=== PATIENT | female | born 1935 | race Caucasian/White ===

== ENCOUNTER 2019-10-29 11:16 | Emergency (ER) | payer MEDICARE, BC ==
[2019-10-29 11:23] VITALS: BP 191/96; PULSE 98
--- NOTE | 2019-10-29 11:54 | EDM.PDOC ---
ED HPI GENERAL MEDICAL PROBLEM - General Chief Complaint: Respiratory Problem Stated Complaint: AMBULANCE Time Seen by Provider: 10/29/19 11:40 Source of Information: Reports: Patient History Limitations: Reports: No Limitations - History of Present Illness INITIAL COMMENTS - FREE TEXT/NARRATIVE: This 84 yo female patient was brought to the ED by [facility] due to increased shortness of breath. The patient reports she was in the hospital in [place] up to about 1 week ago for increased fluid levels. The patient reports she has been taking all of her medications as prescribed. The patient reports she had an acute episode of increased shortness of breath this morning. The patient reports after she talked to her daughters the ambulance was called. The patient reports she does not see any local providers as her previous doctor in [place] would not send her anywhere for the swelling in her legs. The patient reports she is currently feeling fine while lying on the ED bed. Onset: Today Duration: Improving Location: Reports: Chest Quality: Reports: Other Severity: Moderate Improves with: Reports: Rest Worsens with: Reports: Movement Context: Reports: Other Associated Symptoms: Reports: Shortness of Breath - Related Data Allergies Allergy/AdvReac Type Severity Reaction Status Date / Time No Known Allergies Allergy Verified 10/29/19 11:24 Home Meds: Home Meds Clonidine 0.2 mg PO BID 08/12/14 [History] Lorazepam 1 mg PO PRN 08/12/14 [History] Potassium Chloride 20 meq PO DAILY 08/12/14 [History] Sertraline [Zoloft] 200 mg PO DAILY 08/12/14 [History] Albuterol Sulfate [Albuterol Sulfate Hfa] 90 mcg IH PRN 10/29/19 [History] Bumetanide 5 mg PO DAILY 10/29/19 [History] Famotidine 40 mg PO BEDTIME 10/29/19 [History] Mirtazapine 15 mg PO BEDTIME 10/29/19 [History] carvediloL [Carvedilol] 3.125 mg PO BID 10/29/19 [History] Past Medical History HEENT History: Reports: Impaired Vision Cardiovascular History: Reports: Heart Failure, Hypertension Musculoskeletal History: Reports: Arthritis, Back Pain, Chronic - Infectious Disease History Infectious Disease History: Reports: Chicken Pox, Measles, Mumps - Past Surgical History GI Surgical History: Reports: Cholecystectomy Social & Family History - Tobacco Use Smoking Status *Q: Never Smoker Second Hand Smoke Exposure: No - Caffeine Use Caffeine Use: Reports: Coffee - Recreational Drug Use Recreational Drug Use: No ED ROS GENERAL - Review of Systems Review Of Systems: Comprehensive ROS is negative, except as noted in HPI. ED EXAM, GENERAL - Physical Exam Exam: See Below Exam Limited By: No Limitations General Appearance: Alert, WD/WN, Mild Distress, Thin Eye Exam: Bilateral Eye: EOMI, Normal Inspection, PERRL Ears: Normal External Exam, Normal Canal, Hearing Grossly Normal, Normal TMs Nose: Normal Inspection, Normal Mucosa, No Blood Throat/Mouth: Normal Inspection, Normal Lips, Normal Teeth, Normal Gums, Normal Oropharynx, Normal Voice, No Airway Compromise Head: Atraumatic, Normocephalic Neck: Normal Inspection, Supple, Non-Tender, Full Range of Motion Respiratory/Chest: No Respiratory Distress, No Accessory Muscle Use, Chest Non- Tender, Rhonchi (faint lower lobes) Cardiovascular: Normal Peripheral Pulses, Regular Rate, Rhythm, No Edema, No Gallop, No JVD, No Murmur, No Rub GI/Abdominal: Normal Bowel Sounds, Soft, Non-Tender, No Organomegaly, No Distention, No Abnormal Bruit, No Mass (Female) Exam: Deferred Rectal (Female) Exam: Deferred Back Exam: Normal Inspection, Full Range of Motion, NT Extremities: Normal Inspection, Normal Range of Motion, Non-Tender, Normal Capillary Refill, No Pedal Edema Neurological: Alert, Oriented, CN II-XII Intact, Normal Cognition, Normal Gait, Normal Reflexes, No Motor/Sensory Deficits Psychiatric: Normal Affect, Normal Mood Skin Exam: Warm, Dry, Intact, Normal Color, No Rash Lymphatic: No Adenopathy Course - Vital Signs Last Recorded V/S: Last Vital Signs Temp 36.7 C 10/29/19 11:16 Pulse 98 10/29/19 11:16 Resp 20 10/29/19 11:16 BP 191/96 H 10/29/19 11:16 Pulse Ox 91 L 10/29/19 11:16 - Orders/Labs/Meds Orders: Active Orders 24 hr Category Date Time Status EKG Documentation Completion [RC] URGENT Care 10/29/19 11:37 Ordered CULTURE BLOOD [BC] Stat Lab 10/29/19 11:37 Ordered Labs: Laboratory Tests 10/29/19 10/29/19 10/29/19 Range/Units 12:00 12:00 12:00 WBC 9.3 (5.0-10.0) 10^3/uL RBC 3.97 L (4.2-5.4) 10^6/uL Hgb 13.1 (12.0-16.0) g/dL Hct 38.7 (37.0-47.0) % MCV 97.5 (80-100) fL MCH 33.0 (27.0-34.0) pg MCHC 33.9 (33.0-35.0) g/dL Plt Count 217 (150-450) 10^3/uL Neut % (Auto) 76.7 H (42.2-75.2) % Lymph % (Auto) 17.6 L (20.5-50.1) % [place] % (Auto) 5.1 (2-8) % Eos % (Auto) 0.5 L (1.0-3.0) % Baso % (Auto) 0.1 (0.0-1.0) % Sodium (136-145) mmol/L Potassium (3.5-5.1) mmol/L Chloride (98-107) mmol/L Carbon Dioxide (21-32) mmol/L Anion Gap (7-13) mEq/L BUN (7-18) mg/dL Creatinine (0.55-1.02) mg/dL Est Cr Clr Drug Dosing mL/min Estimated GFR (MDRD) BUN/Creatinine Ratio (No establ ref range) Glucose (74-99) mg/dL Lactic Acid 1.4 (0.4-2.0) mmol/L Calcium (8.5-10.1) mg/dL Total Bilirubin (0.2-1.0) mg/dL AST (15-37) U/L ALT (14-59) U/L Alkaline Phosphatase (46-116) U/L Troponin I (0.000-0.056) ng/mL B-Natriuretic Peptide 958 H (0-100) pg/ml Total Protein (6.4-8.2) g/dL Albumin (3.4-5.0) g/dL Globulin Albumin/Globulin Ratio Urine Color (YELLOW) Urine Appearance (CLEAR) Urine pH (5.0-9.0) Ur Specific [place] (1.005-1.030) Urine Protein (NEGATIVE) Urine Glucose (UA) (NEGATIVE) Urine Ketones (NEGATIVE) Urine Occult Blood (NEGATIVE) Urine Nitrite (NEGATIVE) Urine Bilirubin (NEGATIVE) Urine Urobilinogen (0.2-1.0) mg/dL Ur Leukocyte Esterase (NEGATIVE) Ethyl Alcohol (0) mg/dL 10/29/19 10/29/19 10/29/19 Range/Units 12:00 12:00 12:08 WBC (5.0-10.0) 10^3/uL RBC (4.2-5.4) 10^6/uL Hgb (12.0-16.0) g/dL Hct (37.0-47.0) % MCV (80-100) fL MCH (27.0-34.0) pg MCHC (33.0-35.0) g/dL Plt Count (150-450) 10^3/uL Neut % (Auto) (42.2-75.2) % Lymph % (Auto) (20.5-50.1) % [place] % (Auto) (2-8) % Eos % (Auto) (1.0-3.0) % Baso % (Auto) (0.0-1.0) % Sodium 136 (136-145) mmol/L Potassium 3.6 (3.5-5.1) mmol/L Chloride 96 L (98-107) mmol/L Carbon Dioxide 32 (21-32) mmol/L Anion Gap 11.6 (7-13) mEq/L BUN 16 (7-18) mg/dL Creatinine 1.02 (0.55-1.02) mg/dL Est Cr Clr Drug Dosing 32.47 mL/min Estimated GFR (MDRD) 52 BUN/Creatinine Ratio 15.7 (No establ ref range) Glucose 106 H (74-99) mg/dL Lactic Acid (0.4-2.0) mmol/L Calcium 9.7 (8.5-10.1) mg/dL Total Bilirubin 0.9 (0.2-1.0) mg/dL AST 50 H (15-37) U/L ALT 29 (14-59) U/L Alkaline Phosphatase 223 H (46-116) U/L Troponin I < 0.017 (0.000-0.056) ng/mL B-Natriuretic Peptide (0-100) pg/ml Total Protein 8.6 H (6.4-8.2) g/dL Albumin 3.5 (3.4-5.0) g/dL Globulin 5.1 Albumin/Globulin Ratio 0.7 Urine Color Light yellow (YELLOW) Urine Appearance Clear (CLEAR) Urine pH 7.0 (5.0-9.0) Ur Specific [place] 1.020 (1.005-1.030) Urine Protein Negative (NEGATIVE) Urine Glucose (UA) Negative (NEGATIVE) Urine Ketones Negative (NEGATIVE) Urine Occult Blood Negative (NEGATIVE) Urine Nitrite Negative (NEGATIVE) Urine Bilirubin Negative (NEGATIVE) Urine Urobilinogen 0.2 (0.2-1.0) mg/dL Ur Leukocyte Esterase Negative (NEGATIVE) Ethyl Alcohol < 3 (0) mg/dL - Re-Assessments/Exams Free Text/Narrative Re-Assessment/Exam: 10/29/19 12:32 PROCEDURE INFORMATION: Exam: XR Chest, 1 View Exam date and time: 10/29/2019 11:51 AM Age: 84 years old Clinical indication: Shortness of breath TECHNIQUE: Imaging protocol: XR of the chest Views: 1 view. COMPARISON: No relevant prior studies available. FINDINGS: Lungs: There is mild perihilar interstitial prominence consistent with volume overload or early congestive heart failure. Pleural space: There are bilateral small pleural effusions blunting the costophrenic angles. Heart/Mediastinum: The heart is enlarged. Wide superior mediastinum likely due to tortuous brachiocephalic vessels Bones/joints: Unremarkable. IMPRESSION: There is mild perihilar interstitial prominence consistent with volume overload or early congestive heart failure. . Thank you for allowing us to participate in the care of your patient. Departure - Departure Time of Disposition: 12:57 Disposition: Home, Self-Care 01 Condition: Fair Clinical Impression: Elevated brain natriuretic peptide (BNP) level Congestive heart failure Qualifiers: Heart failure type: unspecified Heart failure chronicity: chronic Qualified Code(s): I50.9 - Heart failure, unspecified - Discharge Information *PRESCRIPTION DRUG MONITORING PROGRAM REVIEWED*: Not Applicable *COPY OF PRESCRIPTION DRUG MONITORING REPORT IN PATIENT RACHEL: Not Applicable Forms: ED Department Discharge Care Plan Goals: The patient was advised of the examination, lab, EKG and chest x-ray results during the visit. The patient's current lab results were compared with her lab results from 3 days ago with noted improvement. The patient was given a copy of her lab results during the visit. The patient was encouraged to continue to take her medications as directed by her primary care facility. If the patient has any additional symptoms or concerns, the patient should either return to the emergency department or visit her primary care facility. Sepsis Event Note - Evaluation Sepsis Screening Result: No Definite Risk - Focused Exam Vital Signs: Vital Signs Temp Pulse Resp BP Pulse Ox 10/29/19 11:16 36.7 C 98 20 191/96 H 91 L Date Exam was Performed: 10/29/19 Time Exam was Performed: 12:57 - My Orders Last 24 Hours: My Active Orders 10/29/19 11:37 EKG Documentation Completion [RC] URGENT CULTURE BLOOD [BC] Stat - Assessment/Plan Last 24 Hours: My Active Orders 10/29/19 11:37 EKG Documentation Completion [RC] URGENT CULTURE BLOOD [BC] Stat
[2019-10-29 12:35] LABS: ANION GAP 11.6 mEq/L (7-13); CHLORIDE,CL 96 mmol/L (98-107); SODIUM,NA 136 mmol/L (136-145)
== END 2019-10-29 13:15 | disposition home or self-care (01) ==
LOC: DL.ED 11:16
DX: I11.0 Hypertensive heart disease with heart failure (principal); I50.9 Heart failure, unspecified; R79.1 Abnormal coagulation profile; M19.90 Unspecified osteoarthritis, unspecified site; Z79.899 Other long term (current) drug therapy
CPT/HCPCS: 36415; 71045; 80053; 80307; 81003; 83605; 83880; 84484; 85025; 87040; 93005; 99283; 99285-25

== ENCOUNTER 2019-11-21 23:49 | Emergency (ER) | payer MEDICARE, BC ==
[2019-11-22] MEDS ORDERED: Metoprolol Tartrate 5 MG/5 ML SDV IVPUSH ONE (00:22)
[2019-11-22] MEDS ORDERED: Sodium Chloride 0.9% 1,000 ML IV ONE (00:29)
[2019-11-22 00:35] LABS: ANION GAP 12.2 mEq/L (7-13)
[2019-11-22] MEDS ORDERED: Diltiazem 25 MG/5 ML SDV IVPUSH ONE (01:20)
--- NOTE | 2019-11-22 02:08 | EDM.PDOC ---
ED HPI GENERAL MEDICAL PROBLEM - General Chief Complaint: Cardiovascular Problem Stated Complaint: HEART ISSUE Time Seen by Provider: 11/22/19 00:10 Source of Information: Reports: Patient, Family History Limitations: Reports: No Limitations - History of Present Illness INITIAL COMMENTS - FREE TEXT/NARRATIVE: ED with daughter. Patient reports feeling anxious and that heart is racing , noticed first this am. Has been recently been seen by pulmonology and crdiology with medication adjustments. Recent swelling of legs starting to increase again. Has had 3# weight change in past couple of days. Patient denies chest pain. Is SOB but does not notice a big change, No fever, Has had chills. Diarrhea earlier this week on Friday. Anxious tonight and not sleeping well so came to ER. - Related Data Allergies Allergy/AdvReac Type Severity Reaction Status Date / Time teriparatide [From Forteo] Allergy Confusion Verified 11/22/19 00:22 Home Meds: Home Meds Clonidine 0.2 mg PO BID 08/12/14 [History] Lorazepam 1 mg PO ASDIRECTED PRN 08/12/14 [History] Potassium Chloride 20 meq PO DAILY 08/12/14 [History] Sertraline [Zoloft] 50 mg PO DAILY 08/12/14 [History] Albuterol Sulfate [Albuterol Sulfate Hfa] 90 mcg IH ASDIRECTED PRN 10/29/19 [ History] Bumetanide 1 mg PO BID 10/29/19 [History] Famotidine 40 mg PO BEDTIME 10/29/19 [History] Mirtazapine 15 mg PO BEDTIME 10/29/19 [History] carvediloL [Carvedilol] 6.25 mg PO BID 10/29/19 [History] Sertraline HCl [Zoloft] 100 mg PO DAILY 11/22/19 [History] Past Medical History HEENT History: Reports: Impaired Vision Cardiovascular History: Reports: Heart Failure, Hypertension Respiratory History: Reports: Asthma, Interstitial Lung Disease Gastrointestinal History: Reports: [employer] History: Reports: Musculoskeletal History: Reports: Arthritis, Back Pain, Chronic, Osteoporosis Psychiatric History: Reports: Anxiety, Depression Hematologic History: Reports: Anemia - Infectious Disease History Infectious Disease History: Reports: Chicken Pox, Measles, Mumps - Past Surgical History GI Surgical History: Reports: Other (See Below) Other GI Surgeries/Procedures: hiatal hernia Social & Family History - Family History Family Medical History: Noncontributory - Tobacco Use Smoking Status *Q: Former Smoker Years of Tobacco use: 10 Packs/Tins Daily: 1 Used Tobacco, but Quit: Yes Month/Year Tobacco Last Used: 1963 - Caffeine Use Caffeine Use: Reports: None - Recreational Drug Use Recreational Drug Use: No ED ROS GENERAL - Review of Systems Review Of Systems: See Below Constitutional: Reports: Chills HEENT: Reports: No Symptoms Respiratory: Reports: No Symptoms Cardiovascular: Reports: No Symptoms GI/Abdominal: Reports: No Symptoms : Reports: No Symptoms Musculoskeletal: Reports: No Symptoms Skin: Reports: No Symptoms Neurological: Reports: Confusion. Denies: Headache, Numbness, Paresthesia, Seizure, Syncope, Tingling, Tremors, Trouble Speaking, Difficulty Walking, Weakness, Change in Speech, Gait Disturbance Psychiatric: Reports: Anxiety ED EXAM, GENERAL - Physical Exam Exam: See Below Exam Limited By: No Limitations General Appearance: Alert, No Apparent Distress Eye Exam: Bilateral Eye: EOMI Ears: Normal External Exam, Normal TMs Nose: Normal Inspection Throat/Mouth: Normal Inspection, Normal Lips Head: Atraumatic, Normocephalic Neck: Normal Inspection, Supple, Full Range of Motion Respiratory/Chest: No Respiratory Distress, Lungs Clear, Normal Breath Sounds Cardiovascular: Normal Peripheral Pulses, Regular Rate, Rhythm, Irregularly Irregular GI/Abdominal: Normal Bowel Sounds, Soft. No: Distended, Guarding (Female) Exam: Normal External Exam Extremities: Normal Inspection, Normal Range of Motion Neurological: Alert, Oriented, Normal Cognition Psychiatric: Normal Affect, Normal Mood Skin Exam: Warm, Dry, Intact, Normal Color EKG INTERPRETATION Rhythm: A-Fib Course - Vital Signs Last Recorded V/S: Last Vital Signs Temp 97.9 F 11/22/19 01:19 Pulse 120 H 11/22/19 01:51 Resp 24 H 11/22/19 01:51 BP 100/61 11/22/19 01:51 Pulse Ox 100 11/22/19 01:51 - Orders/Labs/Meds Orders: Active Orders 24 hr Category Date Time Status EKG 12 Lead [EKG Documentation Completion] [RC] URGENT Care 11/22/19 00:01 Active CULTURE BLOOD [BC] Stat Lab 11/22/19 00:06 Received UA RFX MEI AND CULT IF INDIC [URIN] Stat Lab 11/22/19 00:00 Ordered Diltiazem 125 mg Med 11/22/19 02:27 Active Sodium Chloride 0.9% [Normal Saline] 100 ml IV TITRATE Sodium Chloride 0.9% [Normal Saline] 1,000 ml Med 11/22/19 00:29 Active IV ONETIME Medication Orders Sodium Chloride (Normal Saline) 1,000 mls @ 50 mls/hr IV ONETIME ONE Stop: 11/22/19 20:28 Last Admin: 11/22/19 00:36 Dose: 50 mls/hr Diltiazem HCl 125 mg/ Sodium (Chloride) 125 mls @ 5 mls/hr IV TITRATE RONNI; Protocol Last Admin: 11/22/19 02:45 Dose: 5 mg/hr, 5 mls/hr Labs: Laboratory Tests 11/22/19 11/22/19 11/22/19 Range/Units 00:06 00:06 00:06 WBC 16.0 H (5.0-10.0) 10^3/uL RBC 3.35 L (4.2-5.4) 10^6/uL Hgb 10.9 L D (12.0-16.0) g/dL Hct 33.3 L (37.0-47.0) % MCV 99.4 (80-100) fL MCH 32.5 (27.0-34.0) pg MCHC 32.7 L (33.0-35.0) g/dL Plt Count 313 D (150-450) 10^3/uL Neut % (Auto) 85.3 H (42.2-75.2) % Lymph % (Auto) 8.2 L (20.5-50.1) % [place] % (Auto) 6.3 (2-8) % Eos % (Auto) 0.1 L (1.0-3.0) % Baso % (Auto) 0.1 (0.0-1.0) % Sodium 133 L (136-145) mmol/L Potassium 4.2 (3.5-5.1) mmol/L Chloride 95 L (98-107) mmol/L Carbon Dioxide 30 (21-32) mmol/L Anion Gap 12.2 (7-13) mEq/L BUN 40 H (7-18) mg/dL Creatinine 1.61 H (0.55-1.02) mg/dL Est Cr Clr Drug Dosing 20.57 mL/min Estimated GFR (MDRD) 30 BUN/Creatinine Ratio 24.8 (No establ ref range) Glucose 131 H (74-99) mg/dL Lactic Acid 1.1 (0.4-2.0) mmol/L Calcium 9.3 (8.5-10.1) mg/dL Total Bilirubin 0.8 (0.2-1.0) mg/dL AST 30 (15-37) U/L ALT 20 (14-59) U/L Alkaline Phosphatase 240 H (46-116) U/L Troponin I (0.000-0.056) ng/mL B-Natriuretic Peptide 2890 H (0-100) pg/ml Total Protein 8.2 (6.4-8.2) g/dL Albumin 3.2 L (3.4-5.0) g/dL Globulin 5.0 Albumin/Globulin Ratio 0.64 Amylase 32 (25-115) U/L Lipase 71 L (73-393) U/L SARS-CoV-2 RNA (RT-PCR) (NEGATIVE) 11/22/19 11/22/19 Range/Units 00:06 01:44 WBC (5.0-10.0) 10^3/uL RBC (4.2-5.4) 10^6/uL Hgb (12.0-16.0) g/dL Hct (37.0-47.0) % MCV (80-100) fL MCH (27.0-34.0) pg MCHC (33.0-35.0) g/dL Plt Count (150-450) 10^3/uL Neut % (Auto) (42.2-75.2) % Lymph % (Auto) (20.5-50.1) % [place] % (Auto) (2-8) % Eos % (Auto) (1.0-3.0) % Baso % (Auto) (0.0-1.0) % Sodium (136-145) mmol/L Potassium (3.5-5.1) mmol/L Chloride (98-107) mmol/L Carbon Dioxide (21-32) mmol/L Anion Gap (7-13) mEq/L BUN (7-18) mg/dL Creatinine (0.55-1.02) mg/dL Est Cr Clr Drug Dosing mL/min Estimated GFR (MDRD) BUN/Creatinine Ratio (No establ ref range) Glucose (74-99) mg/dL Lactic Acid (0.4-2.0) mmol/L Calcium (8.5-10.1) mg/dL Total Bilirubin (0.2-1.0) mg/dL AST (15-37) U/L ALT (14-59) U/L Alkaline Phosphatase (46-116) U/L Troponin I < 0.017 (0.000-0.056) ng/mL B-Natriuretic Peptide (0-100) pg/ml Total Protein (6.4-8.2) g/dL Albumin (3.4-5.0) g/dL Globulin Albumin/Globulin Ratio Amylase (25-115) U/L Lipase (73-393) U/L SARS-CoV-2 RNA (RT-PCR) Negative (NEGATIVE) Meds: Medications Generic Name Dose Route Start Last Admin Trade Name Freq PRN Reason Stop Dose Admin Sodium Chloride 1,000 mls @ 50 mls/hr 11/22/19 00:29 11/22/19 00:36 Normal Saline IV 11/22/19 20:28 50 mls/hr ONETIME ONE Administration Diltiazem HCl 125 mg/ Sodium 125 mls @ 5 mls/hr 11/22/19 02:27 11/22/19 02:45 Chloride IV 5 mg/hr TITRATE RONNI 5 mls/hr Administration Protocol 5 MG/HR Discontinued Medications Generic Name Dose Route Start Last Admin Trade Name Freq PRN Reason Stop Dose Admin Diltiazem HCl 10 mg 11/22/19 01:20 11/22/19 01:25 Diltiazem IVPUSH 11/22/19 01:21 10 mg ONETIME ONE Administration Diltiazem HCl 125 mg/ Sodium 125 mls @ 5 mls/hr 11/22/19 02:30 Chloride IV TITRATE RONNI Protocol 5 MG/HR Metoprolol Tartrate 2.5 mg 11/22/19 00:22 11/22/19 00:37 Lopressor IVPUSH 11/22/19 00:23 2.5 mg ONETIME ONE Administration - Re-Assessments/Exams Free Text/Narrative Re-Assessment/Exam: HR poor response with lopressor, Improved response decreased rate with Cardizem. TC Dr Salinas, accepting patient in transfer. Tx via [facility]. Code status discussed with daughter, states patient has left decision to children. Daughter in porcess of contacting family members to discuss as no decisions or prior discuions have previously taken place. Informed daughter unless otherwise designated. Patient will be full code. Departure - Departure Time of Disposition: 03:17 Disposition: DC/Tfer to [facility] Reason for Transfer *Q: Other Condition: Undetermined Clinical Impression: New onset atrial fibrillation, Cardiomegaly, Interstitial pulmonary disease CHF (congestive heart failure) Qualifiers: Heart failure type: unspecified Heart failure chronicity: chronic Qualified Code(s): I50.9 - Heart failure, unspecified Forms: ED Department Discharge Sepsis Event Note - Evaluation Sepsis Screening Result: No Definite Risk - Focused Exam Vital Signs: Vital Signs Temp Pulse Pulse Resp BP BP Pulse Ox 11/22/19 01:51 120 H 24 H 100/61 100 11/22/19 01:19 97.9 F 134 H 26 H 122/75 100 11/22/19 00:37 131 H 120/73 11/22/19 00:09 99 F 143 H 23 H 143/92 H 93 L Date Exam was Performed: 11/22/19 Time Exam was Performed: 02:47 - My Orders Last 24 Hours: My Active Orders 11/22/19 00:00 UA RFX MEI AND CULT IF INDIC [URIN] Stat 11/22/19 00:01 EKG 12 Lead [EKG Documentation Completion] [RC] URGENT 11/22/19 00:06 CULTURE BLOOD [BC] Stat 11/22/19 00:29 Sodium Chloride 0.9% [Normal Saline] 1,000 ml IV ONETIME 11/22/19 02:27 Diltiazem 125 mg Sodium Chloride 0.9% [Normal Saline] 100 ml IV TITRATE - Assessment/Plan Last 24 Hours: My Active Orders 11/22/19 00:00 UA RFX MEI AND CULT IF INDIC [URIN] Stat 11/22/19 00:01 EKG 12 Lead [EKG Documentation Completion] [RC] URGENT 11/22/19 00:06 CULTURE BLOOD [BC] Stat 11/22/19 00:29 Sodium Chloride 0.9% [Normal Saline] 1,000 ml IV ONETIME 11/22/19 02:27 Diltiazem 125 mg Sodium Chloride 0.9% [Normal Saline] 100 ml IV TITRATE
[2019-11-22] MEDS ORDERED: Diltiazem 125 MG in Sodium Chloride 0.9% 100 ML IV SCH ×2 (02:27→02:30)
[2019-11-22 02:52] VITALS: BP 120/62; PULSE 115
== END 2019-11-22 03:06 ==
LOC: DL.ED 23:49
DX: I48.91 Unspecified atrial fibrillation (principal); J84.9 Interstitial pulmonary disease, unspecified; I11.0 Hypertensive heart disease with heart failure; I50.9 Heart failure, unspecified; J45.909 Unspecified asthma, uncomplicated; K21.9 Gastro-esophageal reflux disease without esophagitis; F41.9 Anxiety disorder, unspecified; F32.9 Major depressive disorder, single episode, unspecified; Z87.891 Personal history of nicotine dependence; Z88.8 Allergy status to other drugs, medicaments and biological substances; Z79.899 Other long term (current) drug therapy
CPT/HCPCS: 36415; 51701; 71045; 80053; 81003; 82150; 83605; 83690; 83880; 84484; 85025; 87040; 93005; 96361; 96365; 96375; 96376; 99285; J3490; J7030; J7050; U0002